=== PATIENT | female | born 1985 | race Caucasian/White ===

== ENCOUNTER 2018-10-27 05:31 | Inpatient (IN) | payer MEDICAID ==
--- NOTE | 2018-10-24 14:54 | GHP ---
[f rep st] PREOP HISTORY AND PHYSICAL DATE OF ADMISSION: 10/27/2018 The patient is scheduled for surgery on 10/27/2018 on the Obstetrics service. HISTORY: Upon admission, the patient is a 33-year-old, G3, P1, A1, at 39 weeks ' gestation with an estimated due date of 11/02/2018, established by a sure last menstrual period and 8-week ultrasound. The patient presents for repeat section with history of previous section and declines trial of labor. The patient has been having good movement, occasional [place] contractions. No bleeding. The patient has felt decreased movement plus had a reactive NST on 10/19. The patient was measuring size greater than dates and had an ultrasound at 32 weeks' gestation that revealed 62 % estimated weight with normal fluid. , otherwise, has been uncomplicated. Risks and benefits of the surgery discussed and the consent form signed. The patient has been offered tubal ligation for control; however, the patient reports dysmenorrhea and does not want to make her menstral pain worse. CURRENT HISTORY: The patient has been followed with [facility] since 8 weeks gestation. The patient was having nausea in the first trimester and taking vitamin B6. Nausea actually worsened in the early second trimester and the patient has stopped her work, as she was having to commute to [place]. The nausea did ashley in later 2nd trimester. Ultrasound performed at 21 weeks gestation and there were suboptimal heart and face views. Full anatomy was cleared at 25 weeks gestation. The patient had a slightly elevated 1-hour Glucola with normal 3-hour GTT. LABS: Include maternal blood type O positive with negative antibody screen. RPR nonreactive. Rubella immune. Hepatitis B surface antigen negative. HIV negative. 1-hour Glucola was performed in the first trimester and was normal and the 2nd trimester was slightly elevated, but a normal 3-hour. Initial hematocrit 39% and this dropped to 37% and then 35%, at which time she was started on iron. The trio genetic carrier status was negative in 2012. Standard genetic panel was all negative. TSH normal. PIH labs normal with a baseline POC at 0.3. Toxoplasmosis negative. Varicella immune. Parvovirus nonimmune. Pap smear negative with negative HPV. Verify testing was negative and MSAFP was negative. GBS culture was negative. PAST MEDICAL HISTORY: Increased BMI. Fibrous breasts with a breast biopsy at the age 15. PAST SURGICAL HISTORY: section in 2013, and the breast biopsy at age 15. PAST OBSTETRIC HISTORY: In January 2014 a male delivered at 39 weeks and 6 days after induction of labor for mild preeclampsia. There was failure to progress, meconium, and the patient had a primary under an epidural. The baby was 6 pounds 15 ounces. In July 2017 a SAB at 6-8 weeks gestation. ALLERGIES: Patient has an allergy to latex causing a rash. CURRENT MEDICATIONS: vitamins and iron. SOCIAL HISTORY: The patient is a prior smoker from the age of 14 to 22, half a pack a day. The patient denies any alcohol in but 1-2 a day, non . The patient denies any drug use. The patient is and lives with her , Morgan, and their son. PHYSICAL EXAMINATION: GENERAL: At the time of preop the patient is an overweight white female in no physical distress. VITAL SIGNS: The patient has normal vital signs with blood pressure 136/80. Clinically afeb. Urine check is negative for protein and glucose. LUNGS; CTA bilat. HEART: RRR. ABD: gravid uterus. heart tones in the 140s and there was a reactive NST with good accelerations. PELVIC: Exam is deferred. EXTREMITIES: With mild edema. Normal DTRs. ASSESSMENT: Intrauterine at 39 weeks' at the time of repeat C- section. Previous , declines trial of labor. Declines tubal ligation. PLAN: The patient will present for repeat on 10/27/2018. The patient will have preoperative antibiotics and will have SCDs on her lower extremities for DVT prophylaxis. /[id number]/MODL and [id number]/MODL and [id number]/ [facility]
--- NOTE | 2018-10-24 15:29 | GHP ---
[f rep st] PREOP HISTORY AND PHYSICAL DATE OF ADMISSION: 10/27/2018 The patient is scheduled for surgery on 10/27/2018 on the Obstetrics service. The dictation keeps ge tting cut off, this is now the third time I am dictating, so I am going just try to restart where I w as. PAST OBSTETRIC HISTORY: In January 2014 a male delivered at 39 weeks and 6 days after induction of labor for mild preeclampsia. There was failure to progress, meconium, and the patient had a primary C-sec tion under an epidural. The baby was 6 pounds 15 ounces. In July 2017 a SAB at 6-8 weeks gestat ion. ALLERGIES: Patient has an allergy to latex causing a rash. CURRENT MEDICATIONS: vitamins and iron. SOCIAL HISTORY: The patient is a prior smoker from the age of 14 to 22, half a pack a day. The miles ent denies any alcohol in but 1-2 a day, non . The patient denies any drug use. T he patient is and lives with her , Morgan, and their son. PHYSICAL EXAMINATION: GENERAL: At the time of preop the patient is an overweight white female in no physical distress. VITAL SIGNS: The patient has normal vital signs with blood pressure 136/80. Urine check is negative for protein and glucose. heart tones in the 140s and there was a reactive NST with good accel erations. The patient is clinically afebrile. PELVIC: Exam is deferred. EXTREMITIES: With mild e mandy. Normal DTRs. ASSESSMENT: Intrauterine at 39 weeks' at the time of repeat . Previous , declines trial of labor. Declines tubal ligation. PLAN: The patient will present for repeat on 10/27/2018. The patient will have preoperati ve antibiotics and will have SCDs on her lower extremities for DVT prophylaxis. Hopefully all 3 of t hese dictations can be combined. /[id number]/MODL
[2018-10-27] MEDS ORDERED: LR 1,000 ML IV SCH (06:26)
[2018-10-27] MEDS ORDERED: ceFAZolin 2 GM/DEXTROSE 100 ML IV ONE (06:26)
[2018-10-27] MEDS ORDERED: LR 500 ML IV ONE (06:26)
[2018-10-27] MEDS ORDERED: CITRIC ACID/SODIUM CITRATE 30 ML UDCUP PO ONE (06:26)
[2018-10-27 06:41] LABS: PLATELET COUNT 275 10^3/uL (150-400)
[2018-10-27] MEDS ORDERED: BUPIVACAINE/DEXTROSE 7.5MG/ML 2 ML SPINAL AMP SP ONE (07:28)
[2018-10-27] MEDS ORDERED: fentaNYL 100 MCG/2 ML INJ ONE (07:29)
[2018-10-27] MEDS ORDERED: morphINE PF 5 MG/10 ML INJ ONE (07:29)
[2018-10-27] MEDS ORDERED: ePHEDrine SULFATE 25 MG/5 ML SYR ONE (07:32)
[2018-10-27] MEDS ORDERED: PHENYLEPHRINE HCL 100 MCG/ML SYR ONE (07:32)
[2018-10-27] MEDS ORDERED: VASOPRESSIN 20 UNIT/ML VIAL ONE (07:32)
[2018-10-27] MEDS ORDERED: OXYTOCIN 100 UNITS/10 ML VIAL ONE (07:34)
--- NOTE | 2018-10-27 07:39 | PDANEPAE ---
ANE Past Medical History - Pulmonary History Hx Sleep Apnea: No Sleep Apnea Screening Result - Last Documented: Negative ANE Review of Systems Review of Systems: ANE Patient History - Allergies Allergies/Adverse Reactions: alcohol Allergy (Mild, Verified 02/11/14 15:45) Rash latex Allergy (Mild, Verified 02/12/14 13:03) Rash metals Allergy (Intermediate, Uncoded 02/11/14 15:45) Rash - Home Medications Home Medications: 1 tab PO DAILY 02/11/14 [Last Taken 02/10/14 22:00] - NPO status NPO Since - Liquids (Date): 10/27/18 NPO Since - Liquids (Time): 04:30 NPO Since - Solids (Date): 10/26/18 NPO Since - Solids (Time): 18:00 ANE Labs/Vital Signs - Labs Result Diagrams: 10/27/18 06:00 - Vital Signs Blood Pressure: 113/73 Heart Rate: 95 Respiratory Rate: 16 O2 Sat (%): 98 Height: 154.94 cm Weight: 101.151 kg ANE Physical Exam - Airway Neck exam: FROM Mallampati Score: Class 2 Mouth exam: normal dental/mouth exam - Pulmonary Pulmonary: no respiratory distress, clear to auscultation - Cardiovascular Cardiovascular: regular rate and rhythym, no murmur, rub, or gallop - ASA Status ASA Status: II ANE Anesthesia Plan Anesthesia Plan: spinal
--- NOTE | 2018-10-27 07:42 | PDHPUP ---
History & Physical Update H&P update statement: This history and physical update is based on an assessment of the patient which was completed after admission or registration (within 24 hours), but prior to the surgery/procedure. H&P update: H&P reviewed & patient examined, no change in patient's condition since H&P completed
[2018-10-27] MEDS ORDERED: NALOXONE HCL 0.4 MG/ML INJ IVP PRN ×2 (08:19→08:25)
[2018-10-27] MEDS ORDERED: PHENYLEPHRINE HCL 100 MCG/ML SYR IVP PRN (08:25)
[2018-10-27] MEDS ORDERED: MEPERIDINE 25 MG/0.5 ML AMP IVP PRN (08:25)
[2018-10-27] MEDS ORDERED: ONDANSETRON 4 MG/2 ML VIAL IVP PRN (08:25)
[2018-10-27] MEDS ORDERED: fentaNYL 100 MCG/2 ML INJ IVP PRN (08:25)
[2018-10-27] MEDS ORDERED: METOCLOPRAMIDE 10 MG/2 ML VIAL IVP PRN (08:25)
[2018-10-27] MEDS ORDERED: MAGNESIUM HYDROXIDE 30 ML UDCUP PO PRN (10:14)
[2018-10-27] MEDS ORDERED: LACTULOSE 20 GM/30 ML UDCUP PO PRN (10:14)
[2018-10-27] MEDS ORDERED: BISACODYL 10 MG SUPP PR PRN (10:14)
[2018-10-27] MEDS ORDERED: POLYETHYLENE GLYCOL 3350 17 GM PKT PO PRN (10:14)
--- NOTE | 2018-10-27 10:29 | OBDEL ---
Info Type: Repeat Presentation at Delivery: Vertex L&D Analgesia/Anesthesia Type: Spinal (with duramorph) GBS+: No Intrapartum Medications: Discontinued Medications Generic Name Dose Route Start Last Admin Trade Name Jabari PRN Reason Stop Dose Admin Citric Acid/Sodium Citrate 30 ml 10/27/18 06:26 10/27/18 07:25 Bicitra PO 10/27/18 06:27 30 ml ONCALL ONE Administration Cefazolin Sodium/Dextrose 100 mls @ 200 mls/hr 10/27/18 06:26 10/27/18 07:40 Ancef IV 10/27/18 06:55 100 mls ONCALL ONE Administration Protocol Lactated Ringer's 500 mls @ 0 mls/hr 10/27/18 06:26 10/27/18 07:19 Lr IV 10/27/18 06:27 500 mls ONCE ONE Administration As Directed - Infant Care Provider Neuropsychology Medical Consultant/[employer] SUPERVISOR: Dilcia Neumann Indications for Delivery: Elective Operative Report - Delivery Pre-op Diagnoses: IUP at 39 wks, declines RIVER Post-op Diagnoses: same History of Prior Section: Yes Number of Prior Sections: 1 Indications for Prior Section: Arrest of Dilation Indications for Current Section: Elective/Repeat Procedure: Scheduled, Low Transverse Surgeon: Paola Alvarado Powder Coater: Kanwal Marin Anesthesiologist: Beatriz Romero Complications: Other (Specify) (body cord, needed Vacuum assistance due to pannus) Findings: small area of peritoneal scar from ant abd wall to ant uterus. bladder low - no visceral flap made. normal uterus. nl tubes and ovaries. clear fluid - body cord. baby vigorous with stimulation after del. 1 min delayed cc. IV Fluid (ml): 2,000 EBL: 1000 Assissted Delivery Assisted Delivery Type: Vacuum Assisted Delivery Comment: at c/s, vacuum applied and with gentle traction the head was brought up the angle through the hysterotomy without problems. Data SHAWN: 11/02/18 Gestational Age: 39 week(s) and 1 day(s) [place] Delivery Date: 10/27/18 Delivery Time: 08:35 Sex of : Female Weight (gm): 3466 g (8 #1) Score (1 Min): 6 Score (5 Min): 8 ICD10 Worksheet Patient Problems: Problems Problem Status Onset S/P repeat low transverse Acute
[2018-10-27] MEDS: KETOROLAC 30 MG/1 ML SDV IVP SCH ×3 (11:03→23:40)
[2018-10-27] MEDS: IBUPROFEN 600 MG TAB PO SCH ×3 (11:33→23:31)
--- NOTE | 2018-10-27 15:26 | OBPP ---
Progress Note Assessment/Plan: Assessment: POD 1/2 s/p RCS doing well Plan: Routine care, hct in am 10/27/18 15:23 Subjective/ Course: 10/27/18 15:24 Pt doing well. Jania liquids and crackers, ready for regular diet. No nausea. No pain. Baby has latched well and breast fed. roberson cath with normal clear UOP. SCDs in place. Bld is normal per RN Objective: 10/27/18 06:00 Patient ABO/Rh O POSITIVE 10/27/18 06:00 Temp Pulse Resp BP Pulse Ox 36.2 C 113 H 17 129/87 H 93 10/27/18 14:00 10/27/18 14:00 10/27/18 14:00 10/27/18 14:00 10/27/18 14:00 Uterine Position/Fundal Height: Umbilicus -1 Uterine Tone: Firm Physical Exam - Physical Exam Abdomen: non-tender (approp post op tenderness), soft, dressing (CDI) Extremities: non-tender, pedal edema (minimal) Skin: normal color, warm/dry Neuro/Psych: alert, normal mood/affect
[2018-10-27] MEDS: ACETAMINOPHEN 325 MG TAB PO SCH ×2 (17:01→23:31)
[2018-10-27] MEDS: SENNOSIDES/DOCUSATE SODIUM TAB PO SCH (23:49)
[2018-10-28] MEDS: ACETAMINOPHEN 325 MG TAB PO SCH ×4 (05:03→18:20)
[2018-10-28] MEDS: KETOROLAC 30 MG/1 ML SDV IVP SCH ×3 (05:56→19:35)
[2018-10-28] MEDS: IBUPROFEN 600 MG TAB PO SCH ×3 (06:08→19:41)
[2018-10-28] MEDS: SIMETHICONE 80 MG TAB CHEW PO SCH ×4 (06:17→19:41)
[2018-10-28] MEDS: SENNOSIDES/DOCUSATE SODIUM TAB PO SCH ×2 (10:29→19:41)
--- NOTE | 2018-10-28 10:53 | PDPAINCON ---
Pain Management Consultation Patient referred by : Christiano - Subjective Pain is: low, well controlled Side effects include: itchiness (moderate, but tolerable), No drowsy, No nausea Activity: able to ambulate - Objective Technique: spinal opioid Sensory and motor exam: block has resolved, no apparent ill effects Vital signs: stable - Assessment/Plan Assessment/Plan: pain well-controlled, continue current mgmt (POD 1 s/p C/S with IT morphine. Patient denies adverse effects aside from moderate pruritus which is tolerable and improving. Able to ambulate and tolerating PO well.)
--- NOTE | 2018-10-28 11:37 | OBPP ---
Progress Note Assessment/Plan: Assessment: pod# 1 s/p RLTCS breast feeding pain control o+/RI/GBS neg anemia - iron tearfulness - discussed mood precautions Plan: 10/28/18 11:36 10/28/18 11:37 Subjective/ Course: 10/27/18 15:24 Pt doing well. Jania liquids and crackers, ready for regular diet. No nausea. No pain. Baby has latched well and breast fed. roberson cath with normal clear UOP. SCDs in place. Bld is normal per RN 10/28/18 11:38 patient is doing well overall. pain is well controlled. is a 3/10 which makes patient anxious that it will increased. discussed pain control strategies. was able to walk to bathroom. voiding without difficulty. normal lochia. denies headache and changes in vision. working on breast feeding. feels like could cry at the drop of a hat but feels it is from not sleeping last night and hormonal changes. discussed mood precautions and sleep. discussed anemia and starting iron. had terrible gas pains by took rocky Objective: 10/28/18 04:55 Patient ABO/Rh O POSITIVE 10/27/18 06:00 Temp Pulse Resp BP Pulse Ox 36.7 C 112 H 18 131/80 H 97 10/28/18 10:01 10/28/18 10:01 10/28/18 10:01 10/28/18 10:01 10/28/18 10:01 Physical Exam - Physical Exam Neck: non-tender, full range of motion, supple Respiratory: chest non-tender, lungs clear, normal breath sounds Cardiac/Chest: normal peripheral pulses, regular rate, rhythm Abdomen: normal bowel sounds, non-tender, other (fundus firm and non tender) Extremities: normal range of motion, non-tender, normal inspection, normal capillary refill Skin: normal color, warm/dry, other (incision covered) Neuro/Psych: no motor/sensory deficits, alert, normal mood/affect, oriented x 3
[2018-10-28] MEDS: oxyCODONE IR 5 MG TAB PO PRN ×2 (15:33→23:12)
[2018-10-28] MEDS: FERRO-SEQUELS 65 MG TAB.ER PO SCH ×2 (16:53→21:01)
[2018-10-29] MEDS: KETOROLAC 30 MG/1 ML SDV IVP SCH ×2 (00:03→13:44)
[2018-10-29] MEDS: ACETAMINOPHEN 325 MG TAB PO SCH ×4 (00:16→17:40)
[2018-10-29] MEDS: IBUPROFEN 600 MG TAB PO SCH ×4 (01:33→20:06)
[2018-10-29] MEDS: oxyCODONE IR 5 MG TAB PO PRN ×5 (03:07→22:29)
[2018-10-29] MEDS: FERRO-SEQUELS 65 MG TAB.ER PO SCH ×2 (09:27→20:07)
[2018-10-29] MEDS: SENNOSIDES/DOCUSATE SODIUM TAB PO SCH ×2 (09:28→20:07)
--- NOTE | 2018-10-29 10:26 | OBPP ---
Progress Note Assessment/Plan: Assessment: 33 y/o POD #2 s/p Rpt LTCS doing well. Plan: Bowel protocol to promote BM today. Continue po iron, and pain meds. Baby with start bili lights today. support. Routine POC, likely d/c home tomorrow. 10/29/18 10:27 Subjective/ Course: 10/27/18 15:24 Pt doing well. Jania liquids and crackers, ready for regular diet. No nausea. No pain. Baby has latched well and breast fed. roberson cath with normal clear UOP. SCDs in place. Bld is normal per RN 10/28/18 11:38 patient is doing well overall. pain is well controlled. is a 3/10 which makes patient anxious that it will increased. discussed pain control strategies. was able to walk to bathroom. voiding without difficulty. normal lochia. denies headache and changes in vision. working on breast feeding. feels like could cry at the drop of a hat but feels it is from not sleeping last night and hormonal changes. discussed mood precautions and sleep. discussed anemia and starting iron. had terrible gas pains by took simethicone 10/29/18 10:23 Pt is doing better this am. She is getting good pain control on Ibuprofen, Tylenol and Oxycodone. She is ambulating and voiding and having min lochia. Breast feeding is going well, but baby is sleepy today and maybe jaundice. She is tolerating reg diet and have + flatus, but not BM yet. She would like to d.c home tomorrow. Objective: 10/28/18 04:55 Patient ABO/Rh O POSITIVE 10/27/18 06:00 Temp Pulse Resp BP Pulse Ox 36.7 C 104 H 18 131/81 H 96 10/29/18 08:00 10/29/18 08:00 10/29/18 08:00 10/29/18 08:00 10/29/18 08:00 Uterine Position/Fundal Height: Umbilicus -2 Uterine Tone: Firm Physical Exam - Physical Exam General Appearance: alert, no apparent distress Neck: non-tender, full range of motion, supple Respiratory: chest non-tender, lungs clear, normal breath sounds Cardiac/Chest: regular rate, rhythm Abdomen: normal bowel sounds, incision (c/d/i) Extremities: swelling (no), Rudolph's sign (neg)
[2018-10-29] MEDS: SIMETHICONE 80 MG TAB CHEW PO SCH ×2 (17:38→17:39)
[2018-10-30] MEDS: IBUPROFEN 600 MG TAB PO SCH ×6 (00:40→21:56)
[2018-10-30] MEDS: KETOROLAC 30 MG/1 ML SDV IVP SCH ×4 (00:41→22:41)
[2018-10-30] MEDS: SIMETHICONE 80 MG TAB CHEW PO SCH ×5 (00:42→22:41)
[2018-10-30] MEDS: oxyCODONE IR 5 MG TAB PO PRN ×6 (02:02→23:27)
[2018-10-30] MEDS: ACETAMINOPHEN 325 MG TAB PO SCH ×4 (02:02→21:56)
[2018-10-30] MEDS: FERRO-SEQUELS 65 MG TAB.ER PO SCH ×2 (08:21→21:57)
[2018-10-30] MEDS: SENNOSIDES/DOCUSATE SODIUM TAB PO SCH ×2 (08:21→19:19)
--- NOTE | 2018-10-30 12:28 | OBPP ---
Progress Note Assessment/Plan: Assessment: POD 3 s/p RCS doing well baby has lost 10% and is needing bili lights. Plan: Routine care, d/c tomorrow. milk coming in 10/27/18 15:23 10/30/18 12:24 Subjective/ Course: 10/27/18 15:24 Pt doing well. Jania liquids and crackers, ready for regular diet. No nausea. No pain. Baby has latched well and breast fed. roberson cath with normal clear UOP. SCDs in place. Bld is normal per RN 10/28/18 11:38 patient is doing well overall. pain is well controlled. is a 3/10 which makes patient anxious that it will increased. discussed pain control strategies. was able to walk to bathroom. voiding without difficulty. normal lochia. denies headache and changes in vision. working on breast feeding. feels like could cry at the drop of a hat but feels it is from not sleeping last night and hormonal changes. discussed mood precautions and sleep. discussed anemia and starting iron. had terrible gas pains by took simethicone 10/29/18 10:23 Pt is doing better this am. She is getting good pain control on Ibuprofen, Tylenol and Oxycodone. She is ambulating and voiding and having min lochia. Breast feeding is going well, but baby is sleepy today and maybe jaundice. She is tolerating reg diet and have + flatus, but not BM yet. She would like to d.c home tomorrow. 10/30/18 12:24 Pt doing very well. oxy q 4 is really controlling pain and pt amb well. bld varies mod-light. urinating fine. Pt feels maybe stay tonight as her milk just coming in and baby's wt dropped -- suppl last noc. baby on lights. Objective: 10/28/18 04:55 Patient ABO/Rh O POSITIVE 10/27/18 06:00 Temp Pulse Resp BP Pulse Ox 36.8 C 98 18 126/79 H 96 10/29/18 20:00 10/29/18 20:00 10/29/18 20:00 10/29/18 20:00 10/29/18 20:00 Uterine Position/Fundal Height: Umbilicus -2 Uterine Tone: Firm Physical Exam - Physical Exam Abdomen: non-tender (approp post op tenderness), soft, incision (CDI, bruising above incision) Extremities: non-tender, pedal edema (moderate) Skin: normal color, warm/dry Neuro/Psych: alert, normal mood/affect
[2018-10-31] MEDS: KETOROLAC 30 MG/1 ML SDV IVP SCH ×2 (01:24→06:52)
[2018-10-31] MEDS: oxyCODONE IR 5 MG TAB PO PRN ×3 (04:48→13:56)
[2018-10-31] MEDS: ACETAMINOPHEN 325 MG TAB PO SCH ×2 (04:49→12:16)
[2018-10-31] MEDS: IBUPROFEN 600 MG TAB PO SCH ×2 (04:49→12:16)
[2018-10-31] MEDS: SENNOSIDES/DOCUSATE SODIUM TAB PO SCH (09:28)
[2018-10-31] MEDS: SIMETHICONE 80 MG TAB CHEW PO SCH ×2 (09:29→12:41)
[2018-10-31] MEDS: FERRO-SEQUELS 65 MG TAB.ER PO SCH (09:29)
[2018-10-31 12:21] VITALS: BP 128/85
--- NOTE | 2018-10-31 12:33 | OBPP ---
Progress Note Assessment/Plan: Assessment: 33 y/o POD #4 s/p Rpt LTCS doing well. Plan: D/c home today with Rx Oxycodone, Ibuprofen, and Tylenol and iron. She had some borderline BP post and evidence of Gestational HTN. We will see her in the office this week for a BP check and 2 weeks for incision check. 10/29/18 10:27 10/31/18 12:30 Subjective/ Course: 10/27/18 15:24 Pt doing well. Jania liquids and crackers, ready for regular diet. No nausea. No pain. Baby has latched well and breast fed. roberson cath with normal clear UOP. SCDs in place. Bld is normal per RN 10/28/18 11:38 patient is doing well overall. pain is well controlled. is a 3/10 which makes patient anxious that it will increased. discussed pain control strategies. was able to walk to bathroom. voiding without difficulty. normal lochia. denies headache and changes in vision. working on breast feeding. feels like could cry at the drop of a hat but feels it is from not sleeping last night and hormonal changes. discussed mood precautions and sleep. discussed anemia and starting iron. had terrible gas pains by took simethicone 10/29/18 10:23 Pt is doing better this am. She is getting good pain control on Ibuprofen, Tylenol and Oxycodone. She is ambulating and voiding and having min lochia. Breast feeding is going well, but baby is sleepy today and maybe jaundice. She is tolerating reg diet and have + flatus, but not BM yet. She would like to d.c home tomorrow. 10/30/18 12:24 Pt doing very well. oxy q 4 is really controlling pain and pt amb well. bld varies mod-light. urinating fine. Pt feels maybe stay tonight as her milk just coming in and baby's wt dropped -- suppl last noc. baby on lights. 10/31/18 12:28 Pt is doing well with Po pain meds, still needing scheduled Ibuprofen, Tylenol and Oxy. She is ambulating and voiding and had a BM 2 days ago. Breast feeding is going well and her milk is coming in. Baby was on bili lights, but now ready for d/c. Objective: 10/28/18 04:55 Patient ABO/Rh O POSITIVE 10/27/18 06:00 Temp Pulse Resp BP Pulse Ox 37.1 C 93 16 128/85 H 98 10/31/18 08:00 10/31/18 08:00 10/31/18 08:00 10/31/18 12:21 10/31/18 08:00 Uterine Position/Fundal Height: Umbilicus -2 Uterine Tone: Firm Physical Exam - Physical Exam General Appearance: alert, no apparent distress Neck: non-tender, full range of motion, supple Respiratory: chest non-tender, lungs clear, normal breath sounds Cardiac/Chest: regular rate, rhythm Abdomen: normal bowel sounds, incision (c/d/i) Extremities: swelling (no), Rudolph's sign (neg)
--- NOTE | 2018-10-31 12:36 | OBGCSDC ---
General Delivery Information - General Info : 3 Para: 2 Abortions: 1 Type: Repeat L&D Analgesia/Anesthesia Type: Spinal Admission Date: 10/27/18 Labs: Patient ABO/Rh O POSITIVE 10/27/18 06:00 Hct 28.1 % (38.0-47.0) L 10/28/18 04:55 - Hospital Course : 10/27/18 15:24 Pt doing well. Jania liquids and crackers, ready for regular diet. No nausea. No pain. Baby has latched well and breast fed. roberson cath with normal clear UOP. SCDs in place. Bld is normal per RN 10/28/18 11:38 patient is doing well overall. pain is well controlled. is a 3/10 which makes patient anxious that it will increased. discussed pain control strategies. was able to walk to bathroom. voiding without difficulty. normal lochia. denies headache and changes in vision. working on breast feeding. feels like could cry at the drop of a hat but feels it is from not sleeping last night and hormonal changes. discussed mood precautions and sleep. discussed anemia and starting iron. had terrible gas pains by took simethicone 10/29/18 10:23 Pt is doing better this am. She is getting good pain control on Ibuprofen, Tylenol and Oxycodone. She is ambulating and voiding and having min lochia. Breast feeding is going well, but baby is sleepy today and maybe jaundice. She is tolerating reg diet and have + flatus, but not BM yet. She would like to d.c home tomorrow. 10/30/18 12:24 Pt doing very well. oxy q 4 is really controlling pain and pt amb well. bld varies mod-light. urinating fine. Pt feels maybe stay tonight as her milk just coming in and baby's wt dropped -- suppl last noc. baby on lights. 10/31/18 12:28 Pt is doing well with Po pain meds, still needing scheduled Ibuprofen, Tylenol and Oxy. She is ambulating and voiding and had a BM 2 days ago. Breast feeding is going well and her milk is coming in. Baby was on bili lights, but now ready for d/c. Vaginal - Procedures Assisted Delivery Type: Vacuum - Delivery Providers Surgeon: Paola Alvarado Grocery Caddy: Kanwal Marin Anesthesiologist: Beatriz Romero - Delivery Number of Prior Sections: 1 Indications for Current Section: Elective/Repeat Surgical Procedures: Scheduled, Low Transverse Intra-op Complications: Other (Specify) (body cord, needed Vacuum assistance due to pannus) EBL: 1000 [place] Data SHAWN: 11/02/18 Gestational Age: 39 week(s) and 5 day(s) [place] Delivery Date: 10/27/18 Delivery Time: 08:35 Sex of Infant: Female [place] Weight (gm): 3466 g Score (1 Min): 6 Score (5 Min): 8 Discharge Information - Discharge Information Prescriptions: oxyCODONE IR [Oxycodone Ir (*)] 5 - 10 mg PO Q4HRS PRN #30 tab PRN Reason: Pain, Severe Able To Take Po Ibuprofen [Motrin (*)] 600 mg PO Q6H #30 tab Iron/Vit C/Docusate [Kirill-Sequels 65 mg (*)] 1 each PO BID #60 tab.er Condition: Good Instruction/Follow Up: One Week, Two Weeks, Six Weeks
== END 2018-10-31 14:44 | disposition home or self-care (01) | DRG 540 ==
LOC: FLD 05:31 → FOB 12:19
PROVIDERS: ADMIT Obstetrics & Gynecology; ATTEND Obstetrics & Gynecology
PROC: 10D00Z1 Extraction of Products of Conception, Low, Open Approach (ICD-10-PCS; principal; 2018-10-27)
DX: O34.211 Maternal care for low transverse scar from previous cesarean delivery (principal); O69.82X0 Labor and delivery complicated by other cord entanglement, without compression, not applicable or unspecified; Z37.0 Single live birth; Z3A.39 39 weeks gestation of pregnancy
CPT/HCPCS: J0690; J1200; J1642; J1885; J2274; J2370; J2590; J3010

== ENCOUNTER → 2018-12-14 | Outpatient (CLI) | payer MEDICAID | LOC: FIMAGING 10:55 | PROVIDERS: ATTEND Obstetrics & Gynecology | DX: N63.11 Unspecified lump in the right breast, upper outer quadrant (principal) ==